=== PATIENT | male | born 1985 | race Asian ===

== ENCOUNTER 2020-07-04 08:41 | Emergency (ER) | payer OTHER ==
[~2020-07-04] VITALS: Ht 167.6 cm; Wt 68.0 kg
[2020-07-04 08:51] VITALS: BP 130/84
--- NOTE | 2020-07-04 09:24 | NUR ---
Patient discharged to home in stable condition. Written and verbal after care instructions given. Patient verbalizes understanding of instruction.
--- NOTE | 2020-07-04 09:24 | NUR ---
covid 19 swab collected and sent to lab
== END 2020-07-04 09:25 | disposition home or self-care (01) ==
LOC: ER 08:44
DX: U07.1 COVID-19 (principal); M79.10 Myalgia, unspecified site
CPT/HCPCS: 99283; C9803; U0003